=== PATIENT | female | born 1975 | race Two or more races ===

== ENCOUNTER 2018-11-30 13:56 | Outpatient (CLI) | payer OTHER | END 2018-11-30 13:59 | disposition home or self-care (01) | LOC: RAD 13:56 | DX: M25.671 Stiffness of right ankle, not elsewhere classified (principal); M84.374A Stress fracture, right foot, initial encounter for fracture ==

== ENCOUNTER → 2018-12-12 | Outpatient (CLI) | payer OTHER | END | disposition home or self-care (01) | LOC: MAMO-SONO 08:15 | DX: Z12.31 Encounter for screening mammogram for malignant neoplasm of breast (principal); Z87.898 Personal history of other specified conditions; N63.10 Unspecified lump in the right breast, unspecified quadrant; N63.20 Unspecified lump in the left breast, unspecified quadrant; N60.11 Diffuse cystic mastopathy of right breast; N64.4 Mastodynia ==

== ENCOUNTER 2019-04-21 08:15 | Outpatient (CLI) | payer OTHER | END 2019-04-21 08:26 | disposition home or self-care (01) | LOC: RAD 08:15 | DX: J40 Bronchitis, not specified as acute or chronic (principal) ==

== ENCOUNTER 2020-07-01 11:26 | Outpatient (CLI) | payer OTHER | END 2020-07-01 14:25 | disposition home or self-care (01) | LOC: MAMO-SONO 11:26 | PROVIDERS: ATTEND Physical Medicine & Rehabilitation | DX: D48.60 Neoplasm of uncertain behavior of unspecified breast (principal); N64.4 Mastodynia ==

== ENCOUNTER 2022-06-11 09:33 | Outpatient (CLI) | payer OTHER | END 2022-06-11 09:54 | disposition home or self-care (01) | LOC: MAMO-SONO 09:33 | PROVIDERS: ATTEND Physical Medicine & Rehabilitation | DX: N60.39 Fibrosclerosis of unspecified breast (principal); N64.0 Fissure and fistula of nipple ==

== ENCOUNTER 2023-02-25 08:03 | Outpatient (CLI) | payer OTHER | END 2023-02-25 08:12 | disposition home or self-care (01) | LOC: RAD 08:03 | PROVIDERS: ATTEND Physical Medicine & Rehabilitation | DX: J18.0 Bronchopneumonia, unspecified organism (principal); J45.909 Unspecified asthma, uncomplicated ==

== ENCOUNTER 2023-10-22 08:25 | Outpatient (CLI) | payer OTHER | END 2023-10-22 08:33 | disposition home or self-care (01) | LOC: MAMO-SONO 08:25 | PROVIDERS: ATTEND Physical Medicine & Rehabilitation | DX: M54.6 Pain in thoracic spine (principal); M54.51 Vertebrogenic low back pain; M25.551 Pain in right hip; N64.4 Mastodynia; N60.19 Diffuse cystic mastopathy of unspecified breast ==

== ENCOUNTER 2024-12-14 12:53 | Outpatient (CLI) | payer OTHER | END 2024-12-14 12:59 | disposition home or self-care (01) | LOC: MAMO-SONO 12:53 | PROVIDERS: ATTEND Physical Medicine & Rehabilitation | DX: R92.30 Dense breasts, unspecified (principal); N64.4 Mastodynia ==